=== PATIENT | female | born 1985 | race Caucasian/White ===

== ENCOUNTER → 2017-06-11 14:18 | Outpatient (CLI) | payer OTHER, SELFPAY ==
[2015-12-05 18:48] VITALS: BP 125/75
[2017-06-11 13:41] VITALS: BMI 27.4
[2017-06-11 14:03] VITALS: BP 120/72
[2017-06-11 15:48] LABS: Absolute Lymphocyte Count 1.76 X10^3/ul (0.83-4.51); Absolute Neutrophil Count 4.5 X10^3/uL (2.0-7.7); Basophil# 0.02 X10^3/uL; Basophil% 0.3 % (0-1); Eosinophil# 0.09 X10^3/uL; Eosinophils% 1.3 % (0-5); Hematocrit 37.1 % (37-47); Hemoglobin 12.7 g/dl (12.0-15.0); Lymphocyte # 1.76 X10^3/ul (4.0); Lymphocyte % 26.1 % (19-41); Mean Corp Hgb Conc 34.2 g/gl (32-36); Mean Corpuscular Hgb 31.4 pg (27.0-32.0); Mean Corpuscular Volume 91.6 fL (81-99); Mean Platelet Vol. 10.2 fl (6.2-12.0); Monocyte# 0.35 X10^3/uL; Monocyte% 5.2 % (0-10); Neutrophil # 4.52 X10^3/uL (2.7-7.7); POSITIVE COUNT NO; POSITIVE DIFFERENTIAL NO; POSITIVE MORPHOLOGY NO; Platelet Count 233 K/mm3 (150-450); RBC Distribution Width CV 12.7 % (11.6-14.6); RBC Distribution Width SD 41.4 fl (35.1-43.9); Red Blood Count 4.05 M/mm3 (4.2-5.4); White Blood Count 6.8 K/mm3 (4.4-11.0)
[2017-06-12 03:56] LABS: Rapid Plasmin Reagin (RPR) NONREACTIVE (NONREACTIVE)
[2017-06-12 09:39] LABS: Rubella IgG 25.8 IU/mL
[2017-06-13 09:01] LABS: HEPATITIS B SURFACE AG Negative (Negative)
== END ==
PROVIDERS: Visit Provider Obstetrics & Gynecology
DX: Z34.91 Encounter for supervision of normal pregnancy, unspecified, first trimester (principal); Z3A.11 11 weeks gestation of pregnancy
CPT/HCPCS: 85025; 86592; 86762; 86850; 86900; 87340

== ENCOUNTER → 2017-07-30 09:52 | Outpatient (CLI) | payer OTHER, SELFPAY ==
--- NOTE | 2017-07-30 10:20 | EKG12_ITS ---
Test Reason : PALPS Blood Pressure : / mmHG Vent. Rate : 086 BPM Atrial Rate : 086 BPM P-R Int : 160 ms QRS Dur : 088 ms QT Int : 380 ms P-R-T Axes : 024 074 -08 degrees QTc Int : 454 ms Normal sinus rhythm Abnormal QRS-T angle, consider primary T wave abnormality Abnormal ECG No previous ECGs available Confirmed by MACK MOYA, TONE ([id number]), movie editor RITIKA CULVER ([id number]) on 07/31/2017 2:57:56 PM Referred By: Brigida An Confirmed By:TONE GIRON MD
[2017-07-30 11:39] LABS: Absolute Lymphocyte Count 1.69 X10^3/ul (0.83-4.51); Absolute Neutrophil Count 4.7 X10^3/uL (2.0-7.7); Basophil# 0.01 X10^3/uL; Basophil% 0.1 % (0-1); Eosinophil# 0.09 X10^3/uL; Eosinophils% 1.3 % (0-5); Hematocrit 36.6 % (37-47); Hemoglobin 12.4 g/dl (12.0-15.0); Lymphocyte # 1.69 X10^3/ul (4.0); Lymphocyte % 24.5 % (19-41); Mean Corp Hgb Conc 33.9 g/gl (32-36); Mean Corpuscular Hgb 31.9 pg (27.0-32.0); Mean Corpuscular Volume 94.1 fL (81-99); Monocyte# 0.43 X10^3/uL; Monocyte% 6.2 % (0-10); Neutrophil # 4.67 X10^3/uL (2.7-7.7); Neutrophil % 67.8 % (47-70); Platelet Count 260 K/mm3 (150-450); RBC Distribution Width CV 12.5 % (11.6-14.6); RBC Distribution Width SD 42.1 fl (35.1-43.9); Red Blood Count 3.89 M/mm3 (4.2-5.4); White Blood Count 6.9 K/mm3 (4.4-11.0)
[2017-07-30 11:40] LABS: POSITIVE COUNT NO; POSITIVE DIFFERENTIAL NO; POSITIVE MORPHOLOGY NO
[2017-07-30 11:57] LABS: Anion Gap 8 (5-15); BUN 10 mg/dL (7-18); BUN/Creat Ratio 21.3 RATIO (10-20); Calcium,Total 8.6 mg/dL (8.5-10.1); Chloride 105 mmol/L (98-107); Creatinine, Serum 0.47 mg/dL (0.55-1.02); EST Glomerular Filtration Rate 161 mL/min (>60); Est Glom Filt Rate - Afr Amer 195 mL/min (>60); Glucose 78 mg/dL (74-106); Magnesium 2.2 mg/dL (1.6-2.6); Potassium 4.1 mmol/L (3.5-5.1); Sodium Level 138 mmol/L (136-145); T4 Free Direct 1.16 ng/dL (0.76-1.46); Thyroid Stim Hormone (TSH) 0.88 uIU/mL (0.358-3.74)
== END ==
PROVIDERS: Family Provider Internal Medicine; PCP Internal Medicine; Visit Provider Internal Medicine
DX: I45.6 Pre-excitation syndrome (principal); R00.2 Palpitations
CPT/HCPCS: 36415; 80048; 83735; 84439; 84443; 85025; 93005

== ENCOUNTER → 2017-07-30 14:18 | Outpatient (CLI) | payer OTHER, SELFPAY | PROVIDERS: Family Provider Internal Medicine; PCP Internal Medicine; Visit Provider Internal Medicine Cardiovascular Disease | DX: R00.2 Palpitations (principal) | CPT/HCPCS: 93225; 93226 ==

== ENCOUNTER → 2017-08-03 12:15 | Outpatient (CLI) | payer OTHER, SELFPAY ==
--- NOTE | 2017-08-03 12:17 | US_ITS ---
STUDY: SECOND AND THIRD TRIMESTER OBSTETRICAL ULTRASOUND REASON FOR EXAM: Female, 31 years old. Routine survey. LMP: 03/20/2017 TECHNIQUE: Transabdominal PRIOR ULTRASOUND: None. FINDINGS: There is a single intrauterine fetus. The fetus is in a transverse lie with the head on the maternal right side. There is demonstrated cardiac activity with a heart rate of 146 bpm. There is a normal amniotic fluid volume. The largest amniotic fluid pocket measures 5.3 cm. The placenta is posterior in location and is not low lying. There are Grade 0 placental changes. The cervix measures 4.7 cm in length. The bilateral adnexal regions are normal. BIOMETRY: BPD: 4.3 cm: 19 weeks, 1 days HC: 16.6 cm: 19 weeks, 2 days AC: 15.1 cm: 20 weeks, 3 days FL: 3.2 cm: 20 weeks, 1 days age by current US: 19 weeks, 6 days. ASTER by current US: 12/22/2017. Estimated weight: 329 grams, +/- 48 grams, %. ANATOMY: Gender: Indeterminant Cranium: Normal lateral ventricles. Normal choroid plexus. Normal cerebellum. Normal cisterna magna. Normal face, nose and lips. Chest: Normal 4-chamber heart. Abdomen/Pelvis: Normal diaphragm. Normal stomach. Normal abdominal wall. Normal cord insertion. Normal 3 vessel cord. Normal kidneys. Normal bladder. Spine: Normal cervical spine. Normal thoracic spine. Normal lumbar spine. Normal sacrum. Extremities: Normal bilateral upper extremities. Normal bilateral lower extremities. US/OB Anatomy Scan IMPRESSION: Single live intrauterine at 19 weeks, 6 days by ultrasound with ASTER of 12/22/2017, heart rate of 146 bpm. No suspicious sonographic findings. Electronically Signed: Milan Jalloh MD at 13:59 EDT , Service support ,
== END ==
PROVIDERS: Family Provider Internal Medicine; PCP Internal Medicine; Visit Provider Obstetrics & Gynecology
DX: Z34.90 Encounter for supervision of normal pregnancy, unspecified, unspecified trimester (principal)
CPT/HCPCS: 76805

== ENCOUNTER → 2017-08-07 14:54 | Outpatient (CLI) | payer OTHER, SELFPAY ==
--- NOTE | 2017-08-07 14:54 | ECHOD_ITS ---
Reason For Study: PALPITATIONS Procedure This was a 2D Doppler, Color Flow transthoracic echocardiogram. Exam performed in department. Left Ventricle Normal LV size. Left ventricular systolic function is normal. The estimated ejection fraction is 60 %. No evidence for diastolic dysfunction. No regional wall motion abnormalities noted. Right Ventricle Normal RV size. Normal systolic function. Atria The left atrium is mildly enlarged. Normal right atrium. Mitral Valve Normal mitral valve. Tricuspid Valve Normal tricuspid valve. Mild tricuspid valve insufficiency. Aortic Valve Normal aortic valve. Trisinus/trileaflet aortic valve. Pulmonic Valve Normal pulmonic valve. Great Vessels Normal aortic root. The pulmonary artery is normal size. Normal inferior vena cava. Pericardium/Pleural No pericardial effusion. MMode/2D Measurements & Calculations LVIDd: 5.3 cm IVSd: 0.75 cm Ao root diam: 2.9 cm LVIDs: 3.4 cm LVPWd: 0.85 cm LA dimension: 3.7 cm RVDd: 3.4 cm FS: 34.5 % LAV(MOD-bp): 67.3 ml LA A4 area: 23.4 cm2 RA A4 area: 18.2 cm2 LAV(MOD-bp) Indexed: 34.4 ml/m2 LAV(MOD-sp2): 53.0 ml LAV(MOD-sp4): 69.7 ml Doppler Measurements & Calculations MV E max jose carlos: 105.4 cm/sec Ao V2 max: 189.0 cm/sec LV V1 max: 142.6 cm/sec MV A max jose carlos: 50.7 cm/sec Ao max P.3 mmHg LV V1 max P.1 mmHg MV E/A: 2.1 TR max jose carlos: 162.3 cm/sec TR max P.5 mmHg Interpretation Summary Normal LV size. Left ventricular systolic function is normal. The estimated ejection fraction is 60 %. The left atrium is mildly enlarged. No evidence for diastolic dysfunction. Ordering Physician: Kerwin Seals Referring Physician: WALTER ACSH Performed By: Rebecca Cano, RDCS, RVT
== END ==
PROVIDERS: Family Provider Internal Medicine; PCP Internal Medicine; Visit Provider Internal Medicine Cardiovascular Disease
DX: R00.2 Palpitations (principal)
CPT/HCPCS: 93306

== ENCOUNTER → 2017-10-07 09:48 | Outpatient (CLI) | payer OTHER, SELFPAY ==
[2017-10-07 10:59] LABS: Absolute Lymphocyte Count 1.56 X10^3/ul (0.83-4.51); Absolute Neutrophil Count 5.1 X10^3/uL (2.0-7.7); Basophil# 0.02 X10^3/uL; Basophil% 0.3 % (0-1); Eosinophil# 0.06 X10^3/uL; Eosinophils% 0.9 % (0-5); Hematocrit 32.3 % (37-47); Hemoglobin 10.8 g/dl (12.0-15.0); Lymphocyte # 1.56 X10^3/ul (4.0); Lymphocyte % 22.3 % (19-41); Mean Corp Hgb Conc 33.4 g/gl (32-36); Mean Corpuscular Hgb 32.1 pg (27.0-32.0); Mean Corpuscular Volume 96.1 fL (81-99); Mean Platelet Vol. 9.8 fl (6.2-12.0); Monocyte# 0.29 X10^3/uL; Monocyte% 4.1 % (0-10); Neutrophil # 5.06 X10^3/uL (2.7-7.7); Neutrophil % 72.1 % (47-70); Platelet Count 238 K/mm3 (150-450); RBC Distribution Width CV 12.4 % (11.6-14.6); RBC Distribution Width SD 41.9 fl (35.1-43.9); Red Blood Count 3.36 M/mm3 (4.2-5.4)
[2017-10-07 11:00] LABS: POSITIVE COUNT NO; POSITIVE DIFFERENTIAL NO; POSITIVE MORPHOLOGY NO
[2017-10-07 11:27] LABS: Glucose Challenge Gest 1H 50g 86 mg/dL (70-140)
== END ==
PROVIDERS: Family Provider Internal Medicine; PCP Internal Medicine; Visit Provider Nurse Practitioner Women's Health
DX: Z34.90 Encounter for supervision of normal pregnancy, unspecified, unspecified trimester (principal)
CPT/HCPCS: 36415; 82950; 85025; 86850; 86900

== ENCOUNTER → 2017-10-16 09:06 | Outpatient (CLI) | payer OTHER, SELFPAY ==
--- NOTE | 2017-10-16 09:06 | DT_ITS ---
This patient was seen during an EMR downtime October 12, 2017 - October 19, 2017. This patient may have a combination of paper and electronic documentation or all paper documentation. All documentation is viewable within the e-chart portion of [facility] for each patient visit.
[2017-10-19 10:06] LABS: HIV - WCH Non-Reactive (Nonreactive)
== END ==
PROVIDERS: Family Provider Internal Medicine; PCP Internal Medicine; Visit Provider Obstetrics & Gynecology
DX: Z34.81 Encounter for supervision of other normal pregnancy, first trimester (principal)
CPT/HCPCS: 36415; 82950; 86703; 86850; 86900

== ENCOUNTER → 2017-11-04 10:14 | Outpatient (CLI) | payer OTHER, SELFPAY ==
[2017-11-04 11:18] LABS: Absolute Lymphocyte Count 1.74 X10^3/ul (0.83-4.51); Absolute Neutrophil Count 4.6 X10^3/uL (2.0-7.7); Basophil# 0.03 X10^3/uL; Basophil% 0.4 % (0-1); Eosinophil# 0.14 X10^3/uL; Hematocrit 35.2 % (37-47); Hemoglobin 11.7 g/dl (12.0-15.0); Lymphocyte # 1.74 X10^3/ul (4.0); Lymphocyte % 24.9 % (19-41); Mean Corp Hgb Conc 33.2 g/gl (32-36); Mean Corpuscular Hgb 32.3 pg (27.0-32.0); Mean Corpuscular Volume 97.2 fL (81-99); Mean Platelet Vol. 9.9 fl (6.2-12.0); Monocyte% 7.1 % (0-10); Neutrophil # 4.58 X10^3/uL (2.7-7.7); Neutrophil % 65.5 % (47-70); Platelet Count 257 K/mm3 (150-450); RBC Distribution Width CV 12.5 % (11.6-14.6); RBC Distribution Width SD 42.2 fl (35.1-43.9); Red Blood Count 3.62 M/mm3 (4.2-5.4)
[2017-11-04 11:20] LABS: POSITIVE COUNT NO; POSITIVE DIFFERENTIAL NO; POSITIVE MORPHOLOGY NO
== END ==
PROVIDERS: Family Provider Internal Medicine; PCP Internal Medicine; Visit Provider Obstetrics & Gynecology
DX: O99.019 Anemia complicating pregnancy, unspecified trimester (principal)
CPT/HCPCS: 36415; 85025

== ENCOUNTER → 2017-12-02 16:23 | Outpatient (CLI) | payer OTHER, SELFPAY ==
[2017-12-02 17:41] LABS: Group B Strep DNA By PCR Negative (Negative); Internal Control PASS; Probe Check PASS; Specimen Processing Control PASS
== END ==
PROVIDERS: Family Provider Internal Medicine; PCP Internal Medicine; Visit Provider Obstetrics & Gynecology
DX: Z34.90 Encounter for supervision of normal pregnancy, unspecified, unspecified trimester (principal)
CPT/HCPCS: 87081; 87653

== ENCOUNTER 2017-12-20 01:53 | Inpatient (IN) | payer OTHER, SELFPAY ==
[2017-12-20] MEDS: Lactated Ringers 1,000 ML 50 ML IV ×2 (02:10→03:19)
[2017-12-20 02:12] VITALS: BMI 31.6
[2017-12-20 02:27] LABS: Hematocrit 36.3 % (37-47); Hemoglobin 12.5 g/dl (12.0-15.0); Mean Corp Hgb Conc 34.4 g/gl (32-36); Mean Corpuscular Hgb 32.6 pg (27.0-32.0); Mean Corpuscular Volume 94.8 fL (81-99); Mean Platelet Vol. 10.4 fl (6.2-12.0); Platelet Count 225 K/mm3 (150-450); RBC Distribution Width CV 11.8 % (11.6-14.6); RBC Distribution Width SD 40.4 fl (35.1-43.9); Red Blood Count 3.83 M/mm3 (4.2-5.4); Scan Indicated on CBC? Y/N NO; White Blood Count 8.6 K/mm3 (4.4-11.0)
[2017-12-20] MEDS: fentaNYL-bupivacaine (epidural) 100 ML BAG EPIDURAL (03:10)
[2017-12-20] MEDS: Oxytocin 30 units/NS 500 ml 30 UNITS/500 ML IV.SOLN 334 UNITS IV (04:07)
[2017-12-20] MEDS: Oxytocin 30 units/NS 500 ml 30 UNITS/500 ML IV.SOLN 167 UNITS IV (04:37)
--- NOTE | 2017-12-20 05:14 | NURSING ---
PRosec not applied d/t transfer to [facility]
--- NOTE | 2017-12-20 05:21 | PCM.HP.OB ---
- Problem List (1) Active labor at term Status: Acute (2) Status: Acute Qualifiers: (3) History of cardiac radiofrequency ablation Status: Chronic Comment: September per Dr. Robby Ellsworth at [facility] for WPW (4) Ciene-Weglveluy-Awehn (WPW) pattern Status: Chronic Comment: saw cardio 07/27 (5) Rh negative status during Status: Acute Qualifiers: Comment: rhogam prn and 28 weeks (6) History of recurrent , currently Status: Acute Comment: progesterone til 12 weeks pre last OB. neg APL workup. discussed i would not recommend baby ASA in . (7) Supervision of normal Status: Acute Qualifiers: Comment: PRR ASTER 12/25/17 Gender surprise PC Amado Trujillo, Lam Efrain History Date of Admission: 12/20/17 Final ASTER: 12/25/17 Gestational age: 39 Weeks and 2 Days History of this : This is a 32 year-old, , at 39 weeks gestational age IAL at 6-7 cm. She has had an uncomplicated . she has a history of several early miscarriages, but had 3 term SVDs in the past. 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 Robby Ellsworth at [facility] for WPW Allergies No Known Allergies Allergy (Verified 12/20/17 02:10) Home Medications: Home Medications Vits [Prenatabs FA] 1 tab PO DAILY 08/25/14 ferrous sulfate 325 mg (65 mg iron) tablet 325 mg PO QDAY tab 11/18/17 Smoking Status: Never smoker Alcohol: None Number of Fetus(es): 1 Heart Tracin-130 moderate variability reactive no decels cat I tracing TOCO Analysis: q2-4 History Past Pregnancies: Past PregnanciesGravida Past Pregnancies Del. Date Name GA/Weeks Outcome Route Bth Weight [facility] Ronnie 39 live - full term 8lbs 7oz Male 22 hours John Patel 09/15/12 Amado 39 live - full term 8 lbs 6 oz Male 10 hours John Patel 12/04/15 Lam 41 live - full term 9 lbs 14 oz Male [address] [facility] DR Busch Labs: Mom's Labs & Results 12/20/17 12/20/17 12/20/17 02:10 02:10 02:10 WBC 8.6 RBC 3.83 L Hgb 12.5 Hct 36.3 L MCV 94.8 MCH 32.6 H MCHC 34.4 RDW 11.8 RDW Differential 40.4 Plt Count 225 MPV 10.4 Blood Type Cancelled O NEGATIVE A1 Antigen Typing Cancelled Rho(D) Type Cancelled Antibody Screen Cancelled NEGATIVE Course Did the patient receive Yes care? Labs Blood Type: O RH: NEGATIVE RPR/VDRL/Syphilis Nonreactive Rubella status Immune HbSAg Negative Date Done: 06/11/17 Chlamydia Negative Gonorrhea Negative HIV/AIDS Non-Reactive Group B Strep: Negative Current Obstetrical History Gestational Diabetes No Incompetent Cervix No Infertility No IUGR No Macrosomia No Hypertension/Pre-eclampsia No Placenta Previa/Abruption No PTL/PROM No Uterine anomaly No Oligohydramnios No Polyhydramnios No Multiple gestation No Past Medical History Asthma No Diabetes No Hypertension No Heart disease No Mitral valve prolapse No Neurologic/Seizure disorder/ No Migraines Kidney disease No Liver disease No Varicosities Yes Clotting disorders/Hx of DVT No Thyroid Dysfunction No Other medical diseases No Psychiatric disorders No Major trauma No Abnormal PAP smear No Sleep apnea No Mammogram in the last 2 years No Social History Marital Status: Alleged father Efrain Hx Smoking Yes Smoking Status Never smoker Expected Infant Delivery Method: Spontaneous Vaginal Review of Systems Constitutional: Denies: Fever, Malaise Eyes: Denies: Blurred vision, Vision Change HEENT: Denies: Head Aches, Visual Changes Cardiovascular: Denies: Chest Pain, Palpitations Respiratory: Denies: Cough, Shortness of Breath, Wheezing Gastrointestinal: Reports: Abdominal Pain. Denies: Diarrhea, Nausea, Vomiting Genitourinary: Denies: Dysuria, Hematuria Gynecological: Reports: Vaginal bleeding, Vaginal discharge Musculoskeletal: Denies: Joint Pain, Muscle pain Skin: Denies: Lesions, Rash Neurological: Denies: Blurred vision, Focal weakness, Headaches Psychiatric: Denies: Anxiety, Depression Endocrine: Denies: Heat/ Cold Intolerance Hematologic/ Lymphatic: Denies: Easy Bruising, Easy Bleeding Physical Exam General: Alert, Cooperative, No apparent distress HEENT: Atraumatic, Normocephalic. Negative for: Thyromegaly, Lymphadenopathy Cardiovascular: Regular rate Lungs: Normal air movement Abdomen: Soft, Non Tender, Gravid Neurological: Deep Tendon Reflexes 2+/4 and Symmetrical, Neuro grossly intact. Negative for: Clonus CANDLE MAKING SUPERVISOR: Normal external genitalia. Negative for: Vulvar lesions Estimated gestational size: Appropriate for gestational size Presentation: Cephalic Cervix Dilation (cm): 6.5 Station: -1 Effacement (%): 60 Assessment/Plan All Active Problems (Last Reviewed 12/16/17 @ 10:19 by Elis Ogden) Active labor at term (Acute) (Acute) Rh negative status during (Acute) History of recurrent , currently (Acute) Supervision of normal (Acute) Anemia affecting (Resolved) This is a 32 year-old, at 39 weeks gestational age presents IAL Patient presents IAL, plan expectant management for , pitocin/AROM PRN if needed. Pain management: plans epidural GBS negative Management of any complications: none I have reviewed the [facility] and made any clinically relevant updates.
--- NOTE | 2017-12-20 05:25 | HP.PCM_ITS ---
- Problem List (1) Active labor at term Status: Acute (2) Status: Acute Qualifiers: (3) History of cardiac radiofrequency ablation Status: Chronic Comment: September per Dr. Robby Ellsworth at [facility] for WPW (4) Nwtgp-Jfxjlejez-Wuhsd (WPW) pattern Status: Chronic Comment: saw cardio 07/27 (5) Rh negative status during Status: Acute Qualifiers: Comment: rhogam prn and 28 weeks (6) History of recurrent , currently Status: Acute Comment: progesterone til 12 weeks pre last OB. neg APL workup. discussed i would not recommend baby ASA in . (7) Supervision of normal Status: Acute Qualifiers: Comment: PRR ASTER 12/25/17 Gender surprise PC Amado Trujillo, Lam Efrain History Date of Admission: 12/20/17 Final ASTER: 12/25/17 Gestational age: 39 Weeks and 2 Days History of this : This is a 32 year-old, , at 39 weeks gestational age IAL at 6-7 cm. She has had an uncomplicated . she has a history of several early miscarriages, but had 3 term SVDs in the past. 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 Robby Ellsworth at [facility] for WPW Allergies No Known Allergies Allergy (Verified 12/20/17 02:10) Home Medications: Home Medications Vits [Prenatabs FA] 1 tab PO DAILY 08/25/14 ferrous sulfate 325 mg (65 mg iron) tablet 325 mg PO QDAY tab 11/18/17 Smoking Status: Never smoker Alcohol: None Number of Fetus(es): 1 Heart Tracin-130 moderate variability reactive no decels cat I tracing TOCO Analysis: q2-4 History Past Pregnancies: Past PregnanciesGravida Past Pregnancies Del. Date Name GA/Weeks Outcome Route Bth [facility] Ronnie 39 live - full term 8lbs 7oz Male 22 hours John Patel 09/15/12 Amado 39 live - full term 8 lbs 6 oz Male 10 hours John Patel 12/04/15 Lam 41 live - full term 9 lbs 14 oz Male 4 hours [facility] DR Busch Labs: Mom's Labs & Results 12/20/17 12/20/17 12/20/17 02:10 02:10 02:10 WBC 8.6 RBC 3.83 L Hgb 12.5 Hct 36.3 L MCV 94.8 MCH 32.6 H MCHC 34.4 RDW 11.8 RDW Differential 40.4 Plt Count 225 MPV 10.4 Blood Type Cancelled O NEGATIVE A1 Antigen Typing Cancelled Rho(D) Type Cancelled Antibody Screen Cancelled NEGATIVE Course Did the patient receive Yes care? Labs Blood Type: O RH: NEGATIVE RPR/VDRL/Syphilis Nonreactive Rubella status Immune HbSAg Negative Date Done: 06/11/17 Chlamydia Negative Gonorrhea Negative HIV/AIDS Non-Reactive Group B Strep: Negative Current Obstetrical History Gestational Diabetes No Incompetent Cervix No Infertility No IUGR No Macrosomia No Hypertension/Pre-eclampsia No Placenta Previa/Abruption No PTL/PROM No Uterine anomaly No Oligohydramnios No Polyhydramnios No Multiple gestation No Past Medical History Asthma No Diabetes No Hypertension No Heart disease No Mitral valve prolapse No Neurologic/Seizure disorder/ No Migraines Kidney disease No Liver disease No Varicosities Yes Clotting disorders/Hx of DVT No Thyroid Dysfunction No Other medical diseases No Psychiatric disorders No Major trauma No Abnormal PAP smear No Sleep apnea No Mammogram in the last 2 years No Social History Marital Status: Alleged father Efrain Hx Smoking Yes Smoking Status Never smoker Expected Infant Delivery Method: Spontaneous Vaginal Review of Systems Constitutional: Denies: Fever, Malaise Eyes: Denies: Blurred vision, Vision Change HEENT: Denies: Head Aches, Visual Changes Cardiovascular: Denies: Chest Pain, Palpitations Respiratory: Denies: Cough, Shortness of Breath, Wheezing Gastrointestinal: Reports: Abdominal Pain. Denies: Diarrhea, Nausea, Vomiting Genitourinary: Denies: Dysuria, Hematuria Gynecological: Reports: Vaginal bleeding, Vaginal discharge Musculoskeletal: Denies: Joint Pain, Muscle pain Skin: Denies: Lesions, Rash Neurological: Denies: Blurred vision, Focal weakness, Headaches Psychiatric: Denies: Anxiety, Depression Endocrine: Denies: Heat/ Cold Intolerance Hematologic/ Lymphatic: Denies: Easy Bruising, Easy Bleeding Physical Exam General: Alert, Cooperative, No apparent distress HEENT: Atraumatic, Normocephalic. Negative for: Thyromegaly, Lymphadenopathy Cardiovascular: Regular rate Lungs: Normal air movement Abdomen: Soft, Non Tender, Gravid Neurological: Deep Tendon Reflexes 2+/4 and Symmetrical, Neuro grossly intact. Negative for: Clonus DRIVER TRAINER: Normal external genitalia. Negative for: Vulvar lesions Estimated gestational size: Appropriate for gestational size Presentation: Cephalic Cervix Dilation (cm): 6.5 Station: -1 Effacement (%): 60 Assessment/Plan All Active Problems (Last Reviewed 12/16/17 @ 10:19 by Elis Ogden) Active labor at term (Acute) (Acute) Rh negative status during (Acute) History of recurrent , currently (Acute) Supervision of normal (Acute) Anemia affecting (Resolved) This is a 32 year-old, at 39 weeks gestational age presents IAL Patient presents IAL, plan expectant management for , pitocin/AROM PRN if needed. Pain management: plans epidural GBS negative Management of any complications: none I have reviewed the [facility] and made any clinically relevant updates.
--- NOTE | 2017-12-20 05:30 | DCINST_ITS ---
Discharge Diet: No Restrictions Discharge Activity: Return to Normal Activity, May not drive while taking narcotic pain medications., May Shower May resume sexual activity in: 4-6 weeks Call your doctor if your incision/area has: Continuous Slow Oozing, Sudden Increased Bleeding, Increased Pain/ Swelling, Increased Redness, Foul Smelling Discharge Additional Instructions: If you experience any of the following, contact your healthcare provider. * Bleeding that soaks a pad every hour for 2 hours * Fever 100.4 or higher * Unrelieved incision or abdominal pain * Swelling, redness, discharge or bleeding from your incision or episiotomy site * Your incision begins to separate * Problems urinating (including inability to urinate or burning while urinating) . * Visual changes * Severe headache * Flu-like symptoms * Pain or redness in one of both of your breasts * Pain, warmth, tenderness or swelling in your legs, especially the calf area * Frequent nausea and vomiting * Symptoms of depression or anxiety If you experience any of the following, call 911 or go to the nearest Emergency Room. * Chest pain * Problems breathing * Seizure activity * Partial or complete paralysis of a body part, slurred speech, weakness or drooping of the face, or a sudden inability to walk or hold your balance Allergies/Adverse Reactions: Allergies No Known Allergies Allergy (Verified 12/20/17 02:10) Medications to take at Discharge Vits [Prenatabs FA] 1 tab PO DAILY 08/25/14 ferrous sulfate 325 mg (65 mg iron) tablet 325 mg PO QDAY tab 11/18/17 Naproxen [Naprosyn] 250 - 500 mg PO Q8H PRN PRN #30 tab 12/20/17 The following prescriptions were given: Naproxen [Naprosyn] 250 - 500 mg PO Q8H PRN PRN #30 tab PRN Reason: MILD PAIN Please Follow Up With: Jazlyn Carrasco MD - [phone] When: Call to make an appointment with your doctor in 6 weeks. If you had elevated Blood pressure or 4th degree laceration you will need to be seen in 2 weeks. Primary Care Physician: Brigida An MD [Primary Care Provider] - Test Results: Test results from this visit will be discussed in further detail at your follow- up appointment, if applicable.
--- NOTE | 2017-12-20 05:31 | PCM.OB.VAG ---
- Problem List (1) Active labor at term Status: Acute (2) Status: Acute Qualifiers: (3) History of cardiac radiofrequency ablation Status: Chronic Comment: September per Dr. Robby Ellsworth at [facility] for WPW (4) Zbmjs-Liyrvblcr-Pvosl (WPW) pattern Status: Chronic Comment: saw cardio 07/27 (5) Rh negative status during Status: Acute Qualifiers: Comment: rhogam prn and 28 weeks (6) History of recurrent , currently Status: Acute Comment: progesterone til 12 weeks pre last OB. neg APL workup. discussed i would not recommend baby ASA in . (7) Supervision of normal Status: Acute Qualifiers: Comment: PRR ASTER 12/25/17 Gender surprise PC Amado Trujillo Graham Efrain Vaginal Delivery Maternal Presentation: Active Labor presents IAL 39 w 2d Amniotic Membrane Rupture Type: Artificial Amniotic Fluid Description: Clear Final ASTER: 12/25/17 Gestational age: 39 Weeks and 2 Days Date of Procedure: 12/20/17 Pre-Operative Diagnosis: ial Post-Operative Diagnosis: same Surgery/ Procedure Performed: Spontaneous Vaginal Delivery Type of Anesthesia: Epidural Description of Procedure: Patient began pushing and delivered the head in the direct OP presentation. The head was delivered atraumatically The right anterior and posterior shoulders delivered without complication followed by the rest of the and the infant was placed on the maternal abdomen. Delayed cord clamping was employed for approximately 60 seconds. Cord was clamped and cut and gentle traction was applied to the cord and the placenta delivered spontaneously immediately following it was noted to be intact with three-vessel cord. The perineum and vagina were inspected and noted to have no laceration. EBL was 100 cc. Patient and tolerated delivery well. after delivery it was noted there was an abnormal appearance to the spine 2/[address] down the 's back. Immediate evaluation by the pesticide applicator was done and the decision for transport was made. Presentation: ROP Placental Delivery Description: Spontaneous Placenta Disposition: [facility] Cord Vessel Description: 3 Vessels Cord Entanglement: None Estimated Blood Loss: 100 A gender: Female Episiotomy Description: None Laceration: None Medications given after delivery: IV Pitocin Complications: None
--- NOTE | 2017-12-20 05:35 | OP.PCM_ITS ---
- Problem List (1) Active labor at term Status: Acute (2) Status: Acute Qualifiers: (3) History of cardiac radiofrequency ablation Status: Chronic Comment: September per Dr. Robby Ellsworth at [facility] for WPW (4) Vpnth-Nlvmhfezy-Iknoq (WPW) pattern Status: Chronic Comment: saw cardio 07/27 (5) Rh negative status during Status: Acute Qualifiers: Comment: rhogam prn and 28 weeks (6) History of recurrent , currently Status: Acute Comment: progesterone til 12 weeks pre last OB. neg APL workup. discussed i would not recommend baby ASA in . (7) Supervision of normal Status: Acute Qualifiers: Comment: PRR ASTER 12/25/17 Gender surprise PC Amado Trujillo Graham Efrain Vaginal Delivery Maternal Presentation: Active Labor presents IAL 39 w 2d Amniotic Membrane Rupture Type: Artificial Amniotic Fluid Description: Clear Final ASTER: 12/25/17 Gestational age: 39 Weeks and 2 Days Date of Procedure: 12/20/17 Pre-Operative Diagnosis: ial Post-Operative Diagnosis: same Surgery/ Procedure Performed: Spontaneous Vaginal Delivery Type of Anesthesia: Epidural Description of Procedure: Patient began pushing and delivered the head in the direct OP presentation. The head was delivered atraumatically The right anterior and posterior shoulders delivered without complication followed by the rest of the and the infant was placed on the maternal abdomen. Delayed cord clamping was employed for approximately 60 seconds. Cord was clamped and cut and gentle traction was applied to the cord and the placenta delivered spontaneously immediately following it was noted to be intact with three-vessel cord. The perineum and vagina were inspected and noted to have no laceration. EBL was 100 cc. Patient and tolerated delivery well. after delivery it was noted there was an abnormal appearance to the spine 2/[address] down the 's back. Immediate evaluation by the engineering technician was done and the decision for transport was made. Presentation: ROP Placental Delivery Description: Spontaneous Placenta Disposition: [facility] Cord Vessel Description: 3 Vessels Cord Entanglement: None Estimated Blood Loss: 100 A gender: Female Episiotomy Description: None Laceration: None Medications given after delivery: IV Pitocin Complications: None
[2017-12-20] MEDS: Ketorolac 30 MG/ML Syringe IV (05:37)
== END 2017-12-20 07:25 | disposition home or self-care (01) | DRG 775 ==
PROVIDERS: Admitting Provider Obstetrics & Gynecology; Family Provider Internal Medicine; PCP Internal Medicine; Visit Provider Obstetrics & Gynecology
DX: O99.02 Anemia complicating childbirth (principal); D64.9 Anemia, unspecified; Z3A.39 39 weeks gestation of pregnancy; Z37.0 Single live birth; Z86.79 Personal history of other diseases of the circulatory system
CPT/HCPCS: 36415; 59025; 59050; 85027; 86850; 86900; 86901; 99218; J7120; G0378

== ENCOUNTER → 2019-08-16 | Outpatient (CLI) | payer OTHER, SELFPAY ==
[2019-08-09 09:33] VITALS: BMI 27.4
[2019-08-16 09:04] LABS: Prolactin 5.1 ng/mL
--- NOTE | 2019-08-16 09:06 | BI_ITS ---
MAMMOGRAPHY - BILATERAL DIAGNOSTIC REASON FOR EXAM: Female, 33 years old. Left nipple discharge for one week. PERTINENT HISTORY: Grandmother with breast cancer. TECHNIQUE: Digital bilateral breast dinh (3D mammographic acquisition) in the CC and MLO projections. 2-D mediolateral oblique (MLO) and craniocaudad (CC) views of both breasts were obtained. CAD: Full Field Digital Mammography with Computer Added Detection was performed. COMPARISON: None. Baseline examination. FINDINGS: Breast Composition: The breasts are heterogeneously dense, which may obscure small masses. There are no dominant masses or suspicious calcifications. No other significant abnormalities are identified. BI/DIAG MAMM W/CAD, BILAT IMPRESSION: Negative diagnostic mammogram. With the patient''s history of the left breast discharge, correlation with ultrasound is recommended. ASSESSMENT CATEGORY: BIRADS Category 0: Incomplete. Need additional imaging evaluation. A letter regarding these results will be sent to the patient by the facility within 30 days. Approximately 10% of breast cancers are not detected by mammography. A normal mammogram should not delay biopsy of a clinically suspicious abnormality. Electronically Signed: Tobi Camargo, at 10:56 EDT , Service support ,
--- NOTE | 2019-08-16 09:46 | US_ITS ---
STUDY: ULTRASOUND BREAST - LEFT REASON FOR EXAM: Female, 33 years old. Left breast nipple discharge. TECHNIQUE: Axial and longitudinal images of the LEFT breast were performed with a high resolution ultrasound transducer. # OF IMAGES: 31 COMPARISON: Comparison is made with prior mammogram done earlier today. FINDINGS: LEFT Breast: The retroareolar region of the left breast was examined by ultrasound. Mildly dilated retroareolar ducts. US/Breast Limited Unilateral IMPRESSION: Mildly dilated retroareolar ducts. ASSESSMENT CATEGORY: BIRADS Category 2: Benign. A letter regarding these results will be sent to the patient by the facility within 30 days. Electronically Signed: Tobi Camargo, at 10:50 EDT , Service support ,
== END | disposition home or self-care (01) ==
PROVIDERS: Nurse Practitioner Women's Health; PCP Internal Medicine; Referring Provider Obstetrics & Gynecology; Visit Provider Obstetrics & Gynecology
DX: N64.52 Nipple discharge (principal)
CPT/HCPCS: 36415; 76642; 77062; 77066; 84146; G0279

== ENCOUNTER → 2020-05-17 | Outpatient (CLI) | payer OTHER, SELFPAY ==
[2020-05-17 15:00] VITALS: BMI 32.2
[2020-05-23 13:52] LABS: HPV APTIMA, High Risk Negative (Negative)
== END | disposition home or self-care (01) ==
PROVIDERS: PCP Internal Medicine; Referring Provider Obstetrics & Gynecology; Visit Provider Obstetrics & Gynecology
DX: Z12.4 Encounter for screening for malignant neoplasm of cervix (principal)
CPT/HCPCS: 87624; 88175; G0145

== ENCOUNTER → 2020-05-24 08:54 | Outpatient (CLI) | payer OTHER, SELFPAY ==
[2020-05-17 15:00] VITALS: BMI 32.2
[2020-05-24 10:33] LABS: Vitamin D,25 Hydroxy 22.7 ng/mL
[2020-05-24 10:37] LABS: Cholesterol 210 mg/dL (200); Glucose 81 mg/dL (74-106); High Density Lipoprotein 100 mg/dL; Thyroid Stim Hormone (TSH) 1.43 uIU/mL (0.358-3.74); Triglycerides 52 mg/dL; Very Low Density Lipoprotein 10 mg/dL (5-40)
== END ==
PROVIDERS: PCP Internal Medicine; Referring Provider Obstetrics & Gynecology; Visit Provider Obstetrics & Gynecology
DX: Z13.220 Encounter for screening for lipoid disorders (principal); Z13.1 Encounter for screening for diabetes mellitus; Z13.21 Encounter for screening for nutritional disorder; Z13.29 Encounter for screening for other suspected endocrine disorder
CPT/HCPCS: 36415; 80061; 82306; 82947; 84443

== ENCOUNTER → 2023-10-30 | Outpatient (CLI) | payer OTHER, SELFPAY ==
--- NOTE | 2023-10-30 13:02 | US_ITS ---
STUDY: ULTRASOUND OF THE FEMALE PELVIS - COMPLETE REASON FOR EXAM: Female, 38 years old. AUB LMP: TECHNIQUE: Transabdominal and transvaginal TECHNICAL QUALITY: Adequate. COMPARISON: None. FINDINGS: The uterus is anteverted and is in a midline position. The uterus measures 9.9 x 6.3 x 5.3 cm. Normal uterine cervix. The endometrium measures 5 mm in thickness, and is hyperechoic. There is no demonstrated endometrial mass. There is a heterogeneous appearance to myometrial echogenicity raising question of adenomyosis or fibroids.. There are no discrete fibroids demonstrated. Tiny nabothian cysts in the lower uterine segment I.U.D. - The patient does not have an I.U.D. The right ovary is visualized. The right ovary measures 4.3 x 2 x 1.8 cm. There is no right ovarian cyst or ovarian mass. There is no visualized right adnexal mass or complex lesion. There is normal arterial and normal venous vascularity. The left ovary is visualized. The left ovary measures 3.6 x 2.5 x 1.9 cm. There is no left ovarian cyst or ovarian mass. There is no visualized left adnexal mass or complex lesion. There is normal arterial and normal venous vascularity. There is no fluid in the cul-de-sac. The pre void volume of the bladder was 375 ml. US/Pelvic w/ Transvaginal IMPRESSION: Heterogeneous appearance to uterus possibly representing adenomyosis or fibroids although there is no discrete fibroid identified. Electronically Signed: Abebe Zapata MD at 16:43 EDT ,
--- NOTE | 2023-10-30 13:40 | BI_ITS ---
MAMMOGRAPHY - BILATERAL SCREENING REASON FOR EXAM: Female, 38 years old. Routine annual screening examination. PERTINENT HISTORY: Grandmother with breast cancer. TECHNIQUE: Digital bilateral breast ari (3D mammographic acquisition) in the CC and MLO projections. 2-D mediolateral oblique (MLO) and craniocaudad (CC) views of both breasts were obtained. CAD: Full Field Digital Mammography with Computer Added Detection was performed. COMPARISON: Comparison is made with prior study dated August 16, 2019. FINDINGS: Breast Composition: The breasts are heterogeneously dense, which may obscure small masses. There are no dominant masses or suspicious calcifications. No other significant abnormalities are identified. There has been no significant change since the prior study. BI/SCRN MAMM (CAD)W/ARI BILAT IMPRESSION: Stable bilateral screening mammogram. Yearly follow-up mammogram recommended. (A) ASSESSMENT CATEGORY: BIRADS Category 1: Negative. A letter regarding these results will be sent to the patient by the facility within 30 days. Approximately 10% of breast cancers are not detected by mammography. A normal mammogram should not delay biopsy of a clinically suspicious abnormality. [id number] Electronically Signed: Tobi Camargo MD at 14:19 EDT ,
== END | disposition home or self-care (01) ==
PROVIDERS: Referring Provider Obstetrics & Gynecology; Visit Provider Obstetrics & Gynecology
DX: Z12.31 Encounter for screening mammogram for malignant neoplasm of breast (principal); Z80.3 Family history of malignant neoplasm of breast
CPT/HCPCS: 76830; 76856; 77063; 77067

== ENCOUNTER → 2024-01-21 | Outpatient (CLI) | payer OTHER, SELFPAY ==
[2024-01-21 10:02] LABS: Absolute Lymphocyte Count 1.94 X10^3/uL (0.83-4.51); Absolute Neutrophil Count 2.7 X10^3/uL (2.0-7.7); Basophil# 0.04 X10^3/uL; Basophil% 0.7 % (0-1); Eosinophils% 5.5 % (0-5); Hematocrit 44.1 % (37-47); Hemoglobin 14.4 g/dL (12.0-15.0); Lymphocyte # 1.94 X10^3/ul (0.83-4.51); Lymphocyte % 35.5 % (19-41); Mean Corp Hgb Conc 32.7 g/dL (32-36); Mean Corpuscular Hgb 30.4 pg (27.0-32.0); Mean Platelet Vol. 9.9 fl (6.2-12.0); Monocyte% 9.2 % (0-10); NRBC Flagged by Analyzer 0 % (0-5); Neutrophil # 2.67 X10^3/uL (2.7-7.7); Neutrophil % 48.9 % (47-70); Platelet Count 277 K/mm3 (150-450); RBC Distribution Width CV 11.9 % (11.6-14.6); RBC Distribution Width SD 41.2 fl (35.1-43.9); Red Blood Count 4.74 M/mm3 (4.2-5.4); White Blood Count 5.5 K/mm3 (4.4-11.0)
[2024-01-21 10:39] LABS: Vitamin D,25 Hydroxy 33.6 ng/mL
[2024-01-21 11:24] LABS: Cholesterol 231 mg/dL (200); Glucose 91 mg/dL (74-106); High Density Lipoprotein 100 mg/dL; Triglycerides 93 mg/dL; Very Low Density Lipoprotein 19 mg/dL (5-40)
[2024-02-02 15:09] LABS: Antithrombin 3 Function 114 % (75-135); Protein C Antigen 113 % (60-150); Protein C, Functional 138 % (73-180); Protein S, Free 92 % (61-136); Protein S, Funtional 64 % (63-140); Protein S, Total 72 % (60-150)
== END | disposition home or self-care (01) ==
PROVIDERS: Referring Provider Obstetrics & Gynecology; Visit Provider Obstetrics & Gynecology
DX: Z13.29 Encounter for screening for other suspected endocrine disorder (principal); N93.9 Abnormal uterine and vaginal bleeding, unspecified; Z13.21 Encounter for screening for nutritional disorder; Z13.1 Encounter for screening for diabetes mellitus; Z13.220 Encounter for screening for lipoid disorders
CPT/HCPCS: 36415; 80061; 81241; 82306; 82947; 84443; 85025; 85300; 85302; 85303; 85305; 85306